=== PATIENT | male | born 1960 | race Caucasian/White ===

== ENCOUNTER 2017-09-20 05:48 | Day surgery (SDC) | payer OTHER ==
[2017-09-19 10:57] VITALS: BMI 27.0
--- NOTE | 2017-09-19 13:52 | PREOPHP ---
DATE OF ADMISSION: 09/20/2017 HISTORY OF PRESENT ILLNESS: This 57-year-old patient is admitted for elective cataract surgery of t he left eye. The patient has had decreased vision in both eyes for approximately 4 months. 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 Patient's systemic history is positive for diabetes mellitus. CURRENT MEDICATIONS INCLUDE: 1. Metformin. 2. Refresh eyedrops. ALLERGIES: THERE ARE NO KNOWN ALLERGIES. PHYSICAL EXAMINATION: The visual acuity with best correction is 20/50 in the right eye and 20/80 in the left eye. 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 Examination of the lens reveals posterior subcapsular cataract ch anges more advanced in the left eye than the right eye. Applanation tonometry is 16 mmHg. Examinat ion of the retina does not reveal the presence of any diabetic retinopathy. DIAGNOSIS: Cataract, left eye. PLAN: Cataract extraction with lens implant, left eye. The risks and alternatives to the surgery h ave been discussed with the patient as well as hopeful improvement of visual acuity leading to great er ability to perform activities of daily living. The patient understands this and agrees to procee d with surgery. Dictated By: TAVIA SINGLETON/GIACOMO Conf#: [id number] DID#: [id number]
[~2017-09-20] VITALS: Ht 167.6 cm; Wt 76.1 kg
[2017-09-20] VITALS (9 sets, daily range): BP systolic 148–173; BP diastolic 75–97; PULSE 85–90; RESP 14–24; Ht 167.6 cm; Wt 76.1 kg
[2017-09-20] MEDS ORDERED: CARBACHOL 0.01% 1.5 ML OPH INJ ONE (06:03)
[2017-09-20] MEDS ORDERED: GENTAMICIN 80 MG INJ ONE (06:03)
[2017-09-20] MEDS ORDERED: CEFAZOLIN 1 GM INJ ONE (06:03)
[2017-09-20] MEDS ORDERED: DEXAMETHASONE 4 MG/ML 1 ML INJ ONE (06:03)
[2017-09-20] MEDS ORDERED: LIDOCAINE 4% (MPF) 5 ML INJ ONE (06:03)
[2017-09-20] MEDS ORDERED: EPINEPHrine 1 MG INJ ONE (06:04)
[2017-09-20] MEDS ORDERED: METF1000 PO (06:47)
[2017-09-20] MEDS ORDERED: SITA25TA3 PO (06:47)
[2017-09-20] MEDS ORDERED: ASPI81TA3 PO (06:47)
[2017-09-20] MEDS ORDERED: DEXAMETHASONE 4 MG/ML 1 ML INJ INJ ONE (06:48)
[2017-09-20] MEDS ORDERED: CARBACHOL 0.01% 1.5 ML OPH INJ IO ONE (06:48)
[2017-09-20] MEDS ORDERED: CEFAZOLIN 1 GM INJ INJ ONE (06:48)
[2017-09-20] MEDS ORDERED: CYCLOPENTOLATE/PHENYLEPH 2 ML OPH OPER SCH (07:00)
[2017-09-20] MEDS ORDERED: MOXIFLOXACIN 0.5% 3 ML OPH OPER SCH (07:00)
[2017-09-20] MEDS ORDERED: TROPICAMIDE 1% 3 ML OPH OPER SCH (07:00)
[2017-09-20] MEDS ORDERED: BROMFENAC SODIUM 1.7 ML OPH DROP OPER SCH (07:00)
[2017-09-20] MEDS ORDERED: SOD CHLORIDE 0.9% 1,000 ML IV SCH (07:00)
[2017-09-20] MEDS ORDERED: LABETALOL HCL 20MG INJ ONE (07:43)
[2017-09-20] MEDS ORDERED: PROPOFOL 20 ML ONE (07:43)
--- NOTE | 2017-09-20 08:02 | SIPON ---
Date/Time of Note Date/Time of Note DATE: 09/20/17 TIME: 08:01 Operative Report Preoperative Diagnosis cataract os Postoperative Diagnosis same Operation/Procedure Performed cataract implant os Surgeon see signature line behavioral modification assistant none Anesthesia: MAC Estimated blood loss: none Transfusion Required none Specimen none Grafts/Implants posterior chamber lens implant Complications none TAVIA CHRISTOPHER MD Sep 20, 2017 08:02
[2017-09-20] MEDS ORDERED: hydrALAzine 20 MG INJ ONE (08:10)
[2017-09-20] MEDS ORDERED: METOCLOPRAMIDE 10 MG INJ IV PRN (08:30)
[2017-09-20] MEDS ORDERED: MIDAZOLAM 1 MG/ML 2 ML INJ IV PRN (08:30)
[2017-09-20] MEDS ORDERED: FENTAnyl 50 MCG/ML VIAL IV PRN ×3 (08:30)
[2017-09-20] MEDS ORDERED: MEPERIDINE 25 MG INJ IV PRN (08:30)
[2017-09-20] MEDS ORDERED: LABETALOL HCL 20MG INJ IV PRN (08:30)
[2017-09-20] MEDS ORDERED: OXYCODONE/ACETAMINOPHEN (5/325) TAB PO PRN ×2 (08:30)
[2017-09-20] MEDS ORDERED: EPHEDrine SULFATE 50 MG/5 ML SYG IV PRN (08:30)
[2017-09-20] MEDS ORDERED: hydrALAzine 20 MG INJ IV PRN (08:30)
[2017-09-20] MEDS ORDERED: DIPHENHYDRAMINE 50 MG INJ IV PRN (08:30)
[2017-09-20] MEDS ORDERED: ONDANSETRON 4 MG INJ IV PRN (08:30)
--- NOTE | 2017-09-20 08:40 | OPR ---
DATE OF OPERATION: 09/20/2017 PREOPERATIVE DIAGNOSIS: Posterior subcapsular cataract, left eye. POSTOPERATIVE DIAGNOSIS: Posterior subcapsular cataract, left eye. PROCEDURE: Cataract extraction with lens implant, left eye. SURGEON: Tavia Chávez MD. ANESTHESIA: Monitored anesthesia, Dr. Canales. OPERATION: Phacoemulsification with posterior chamber intraocular lens implant, left eye. PROCEDURE: The patient was brought to the operating room and placed on the table with an IV in plac e and the patient attached to an air sampling and monitoring. Oxygen was given via face mask. After some intravenous sedation was administered, local anesthesia was given using Xylocaine 2% with epinephrine, mixed with Marcaine 0.5%. This was given in a lid block and retrobulbar injection. The patient was then prepped and draped in the usual sterile manner. A wire lid speculum was inserted between the lids of the left eye. A Superblade was used to enter th e anterior chamber at the corneoscleral limbus at the 10:30 o'clock position. A separate incision wa s made using a 3.0-mm keratome which entered the corneoscleral junction at the 12 o'clock position. Through this 3-mm opening, an irrigating cystotome was introduced into the anterior chamber. The telly mber was filled with Viscoat and an anterior capsulotomy was performed. Balanced salt solution was t hen used for hydrodissection of the lens. A phacoemulsification handpiece was then brought into the field and introduced into the anterior chamber. The lens nucleus was emulsified using a deep groove and cracking the nucleus into quadrants. Following this, each quadrant was aspirated and emulsified at the pupillary margin. After this was completed, the irrigation/aspiration handpiece was brought to the field, introduced i nto the posterior chamber, and the lens cortical material was removed. When this was completed, maeve tional Provisc was injected into the anterior and posterior chambers. The 3-mm opening had its internal lips enlarged, and then the posterior chamber intraocular lens pamela suring 22.5 diopters ([employer] model #LI61A0) was then injected into the posterio r chamber using the lens injector system. After the leading haptic was introduced into the capsular bag and the lens optic was present in the center of the eye, the injector was removed and the traili ng haptic was grasped with non-toothed forceps and introduced into the capsular fold superiorly. A S inskey hook was then used to rotate the intraocular lens so that the lips were oriented in the horiz ontal meridian. One 10-0 nylon suture was placed across the wound. Prior to tying, the irrigation/aspiration handpiece was reintroduced into the anterior chamber to re move the Provisc. Miochol was instilled to constrict the pupil, and then the 10-0 nylon suture was t ied. The ends were cut short and then the knot was buried. Then, 0.5 mL of dexamethasone and 0.5 mL of Ancef were injected into the sub-Tenon space in the infe rior fornix. Ciloxan drops were then placed on the surface of the eye. The speculum was removed and a patch was applied. The patient then left the operating room in satisfactory condition. Dictated By: TAVIA SINGLETON/GIACOMO Conf#: [id number] DID#: [id number]
== END 2017-09-20 09:50 | disposition home or self-care (01) ==
LOC: SDS 05:48
PROVIDERS: ATTEND Ophthalmology
DX: H25.042 Posterior subcapsular polar age-related cataract, left eye (principal); E11.9 Type 2 diabetes mellitus without complications
CPT/HCPCS: 66984; 82962; J0171; J0360; J0690; J1100; J1580; V2632; Z7512; Z7610